=== PATIENT | female | born 1975 | race Caucasian/White ===

== ENCOUNTER 2020-06-17 18:28 | Emergency (ER) | payer SELFPAY ==
[~2020-06-17] VITALS: Ht 165.1 cm; Wt 81.6 kg
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
--- NOTE | 2020-06-17 18:46 | NUR ---
Patient brought in with ambulance for intoxication. Apparently tested for COVID and had a positive test result dated for today in her pocket. Belligerent and refusing to stay in her room. Decided to lay on the floor inthe middle of the ED. will medicate as per order
--- NOTE | 2020-06-17 18:53 | NUR ---
Medicated with Haldol 5mg IM.
[2020-06-17] MEDS: Haloperidol 5mg/ml Inj IM ONE (18:56)
--- NOTE | 2020-06-17 19:00 | NUR ---
ED Nurse Note: rcvd pt from primary nurse at shift change. pt was lying on the floor, spitting on things. Spoke with , ordered restraints. Pt decided to cooperate and stay in room but refused to put on monitoring devices. MD ordered labs, will wait until pt is calmer. Will continue to monitor.
[2020-06-17 20:27] LABS: BASOPHILS % (AUTO) 0.6 % (0.0-2.0); EOSINOPHILS % (AUTO) 3.6 % (0.0-3.0); HEMOGLOBIN 13.9 G/DL (12.0-16.0); LYMPHOCYTES % (AUTO) 42.8 % (20.0-45.0); MEAN CORPUSCULAR VOLUME 91 FL (80-99); MONOCYTES % (AUTO) 6.2 % (1.0-10.0); NEUTROPHILS % (AUTO) 46.8 % (45.0-75.0); PLATELET COUNT 226 K/UL (150-450); RED BLOOD COUNT 4.73 M/UL (4.20-5.40); RED CELL DISTRIBUTION WIDTH 14.2 % (11.6-14.8); WHITE BLOOD COUNT 9.6 K/UL (4.8-10.8)
[2020-06-17] MEDS: cefTRIAXone 1 GM in NS 55 ML IVPB ONE (20:28)
[2020-06-17] MEDS: Bacitracin Oint UD TOPIC ONE (20:29)
[2020-06-17 20:40] LABS: INR 0.9 (0.9-1.1)
[2020-06-17 20:48] LABS: ANION GAP 12 mmol/L (5-15); BLOOD UREA NITROGEN 10 mg/dL (7-18); CALCIUM 8.4 MG/DL (8.5-10.1); CARBON DIOXIDE 26 MMOL/L (21-32); CHLORIDE 109 MMOL/L (98-107); CREATININE 0.8 MG/DL (0.55-1.30); POTASSIUM 3.5 MMOL/L (3.5-5.1); SODIUM 146 MMOL/L (136-145)
--- NOTE | 2020-06-17 20:50 | NUR ---
ED Nurse Note: Pt refused medication administration via IV. Pt let me put ointment on her foot and continued to refuse IV antibiotics. Pt pulled out IV, so I cleaned pt up. Pt is resting comfortably on stretcher and states "I just want to sleep." Pt continued to refuse monitoring devices. WIll continue to monitor.
[2020-06-17 20:54] LABS: ALANINE AMINOTRANSFERASE 32 U/L (12-78); ALBUMIN 3.4 G/DL (3.4-5.0); ALBUMIN/GLOBULIN RATIO 0.8 (1.0-2.7); ALKALINE PHOSPHATASE 89 U/L (46-116); ASPARTATE AMINO TRANSFERASE 34 U/L (15-37); BILIRUBIN,TOTAL 0.3 MG/DL (0.2-1.0)
--- NOTE | 2020-06-17 22:03 | NUR ---
ED Nurse Note: pt sleeping/resting comfortably on stretcher. breathing without complications on RA. unable to obtain VS due to pts refusal of monitoring devices. will continue to monitor
--- NOTE | 2020-06-17 23:05 | NUR ---
ED Nurse Note: pt sleeping comfortably on stretcher. easily awakened by name. pt continues to refuse monitoring devices, so unable to obtain vs. Pt is breathing without complications on RA. Will continue to monitor.
--- NOTE | 2020-06-18 00:03 | NUR ---
ED Nurse Note: pt sleeping comfortably on stretcher and easily awakened by name. pt refusing monitoring devices so unable to obtain vs. pt breathing without complications on RA. will continue to monitor.
--- NOTE | 2020-06-18 01:06 | NUR ---
ED Nurse Note: Awoke pt to see how she was doing. Gave pt a bedpan to use the restroom. Pt then got back in bed and laid down. Pt continues to refuse monitoring devices. Pt is A&oX3. Denies any pain. Breathing without difficulties on RA and continues to want to rest. WIll continue to monitor pt.
[2020-06-18 01:44] VITALS: BP 148/62
--- NOTE | 2020-06-18 01:46 | NUR ---
ED Nurse Note: Pt sleeping on stretcher, easily awakened by name. Explained to the pt that we needed to get her vs another time or we would need to take other measures. Pt finally agreed to vs after another RN came in to assist. VS were obtained and recorded. VS WNL. Pt breathing without complications on RA. Pt is covid positive and isolation precautions remain in practice. will continue to monitor patient.
--- NOTE | 2020-06-18 03:08 | NUR ---
ED Nurse Note: Pt sleeping comfortably on stretcher, awaking easily to her name. Pt states that she is not in any pain at the moment. A&Ox3. VS were refused at this time. Breathing without complications on RA. Encouraged pt to drink water and gave her a sandwich. Will continue to monior.
--- NOTE | 2020-06-18 03:59 | NUR ---
ED Nurse Note: Pt resting comfortably on stretcher. A&Ox3. Pt breathing without difficulty on RA. Pt Asked for another sandwich and I asked for VS. VS WNL. Pt denies any pain at the time being. Will ask MD for discharge. Will continue to monitor in the meantime.
[2020-06-18 04:01] VITALS: BP 141/64
--- NOTE | 2020-06-18 05:00 | NUR ---
ED Nurse Note: Pt resting comfortably on stretcher. No complaints of pain at this time. Pt refused VS. Pt breathing without complications on RA. No signs of distress. Will continue to monitor.
[2020-06-18] MEDS ORDERED: CLINDAMYCIN HC300 MG ORAL (05:45)
--- NOTE | 2020-06-18 06:02 | NUR ---
ER DISCHARGE NOTE: Patient is cleared to be discharged per ER MD, pt is aox4, on room air, pt continues to refuse vitals. pt was given dc and prescription instructions, pt was able to verbalize understanding, pt iv site removed without complications. pt is able to ambulate with walker. pt refusing to leave, security was called.
--- NOTE | 2020-06-18 06:09 | NUR ---
ER DISCHARGE NOTE: Security spoke to pt and she continued to refuse to leave. Pt offered resource list of shelters. Pt states she refuses to leave despite it. Pt in room. Will continue to monitor.
--- NOTE | 2020-06-18 07:10 | NUR ---
Nurses note: PT walking aroun the ED, pt was told that she have to stay in her room due to her COVID-19 and for safety of other pt, pt turn verbaly agresive. Refuse V/S.
--- NOTE | 2020-06-18 07:40 | NUR ---
nurses note: pt walk out the ED with all her belongings.
--- NOTE | 2020-06-18 07:44 | NUR ---
MOBILE [employer] APPLICATION DEVELOPER NOTE SW met w/ pt and discussed dc planning. PT presents as A&O 4x. Pt has been homeless for 5 days after leaving her place. Per pt, the landlord sold the house and she had to move out. She received the notice in advance but failed to secure the housing. Pt has been unemployed for a few months, and she is not receiving any income. Pt has a walker and a few bags with her. Per chart review, pt had the covid test result in her pocket. SW asked pt if she could show the proof/paperwork. Pt denied, stated that she was never tested positive. Pt stated "I have been tested multiple times and I was never positive. You are the second person who is telling me that I am tested positive but I am not" SW asked pt when she was tested last time, pt declined to share w/ this SW. SW offered if pt wants to get tested for covid. Pt was adamant, refused, and stated "If I had covid, I would have ". CYRUS encouraged pt to reconsider but pt refused. PT is denying that she is covid positive. Pt denies hx of mental illness. PT denies having fever, sore throat, SOB. Pt requested the correction information. Pt reported that she received the correction information earlier but she does not know how to get to the shelters. ETOH level was 385 prior to ER visit. PT admits she drank a lot last night. PT declined counseling/tx intervention on substance abuse. Pt declined substance abuse rehab resource. CYRUS encouraged pt to apply GR, food stamp and unemployment benefit once she is secured w/ mailing address. CYRUS attempted to call winter shelters: [facility], [facility], [facility], [facility]. All calls were not answered. Per website, winter shelters open till August 11, 2020. CYRUS provided the addtional list of emergency and winter shelters. CYRUS provided the bus routes to the closest shelters from [facility] as per request. CYRUS explained negative ramification of unlicensed facilities and self-directing. Pt verbalized understanding. This CYRUS is unable to refer pt to covid quarantine center d/t not having the proof that pt is covid positive and pt declined to be tested for covid. PT will dc own resource to preferred location.
--- NOTE | 2020-06-18 08:12 | NUR ---
POST DC NOTE CYRUS spoke isabel Mcdonald from [facility] [phone], reported the incident. Ticket #[id number]. Addendum: 06/18/20 at 1121 by EUGENE BRIDGES CYRUS received a call from [facility] nurse Bradshaw and was informed to report AMA case to [facility] [phone]. CYRUS spoke isabel Anderson from [phone], informed this CYRUS that he is unsure if he takes AMA case report. This CYRUS filed the report through [email or web address] Addendum: 06/18/20 at 1141 by EUGENE BRIDGES CYRUS spoke w/ Dr. Davis from [facility], stating that she does not see this pt as covid positive in her computer system. Scarlett Pineda 1975 per ambulance report
== END 2020-06-18 07:40 | disposition home or self-care (01) ==
LOC: EDBD 18:28 → EMR 19:17
DX: F10.929 Alcohol use, unspecified with intoxication, unspecified (principal); L03.116 Cellulitis of left lower limb; U07.1 COVID-19; F17.200 Nicotine dependence, unspecified, uncomplicated; Y90.8 Blood alcohol level of 240 mg/100 ml or more
CPT/HCPCS: 36415; 80053; 85025; 85610; 85730; 87040; 96365; 96372; 99284; G0480; J0696; J1630

== ENCOUNTER → 2020-06-17 | Emergency (ER) | payer SELFPAY ==
[~2020-06-17] VITALS: Ht 165.1 cm; Wt 81.6 kg
[~2020-06-17] MED LIST: CLINDAMYCIN HC300 MG ORAL
[2020-06-17 14:25] VITALS: BP 142/70
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
--- NOTE | 2020-06-17 14:48 | Emergency Room Report ---
History of Present Illness General Chief Complaint: Lower Extremity Injury Source: Patient, EMS Present Illness HPI Patient brought in by BLS. She is complaining about right foot pain. They were called 4 times the patient had refused transport. PD was summoned because the patient was combative and spitting on BLS. The patient refuses to give me more history about the foot however there are sutures that are present there. Allergies: Coded Allergies: No Known Allergies (Unverified , 06/17/20) COVID-19 Screening Contact w/high risk pt: No Experienced COVID-19 symptoms?: No COVID-19 Testing performed BRONZER: No Patient History Limited by: other - Patient refuses to answer Past Medical History: see triage record Social History: Reports: alcohol use Social History Narrative According to registration the patient is homeless Last Menstrual Period: unknown Reviewed Nursing Documentation: PMH: Agreed; PSxH: Agreed Nursing Documentation-PM Past Medical History: No Stated History Review of Systems All Other Systems: limited Physical Exam Vital Signs Date Time Temp Pulse Resp B/P (MAP) Pulse Ox O2 Delivery O2 Flow Rate FiO2 06/17/20 14:25 84 142/70 (94) Pulse oximetry was not recorded. Patient refused. Sp02 EP Interpretation: other - Patient refused General Appearance: no apparent distress, GCS 15, non-toxic, other - Patient agitated and refusing evaluation Head: normocephalic, atraumatic Eyes: bilateral eye PERRL, bilateral eye EOMI, bilateral eye Scleral Injection ENT: moist mucus membranes Neck: full range of motion Respiratory: normal inspection Cardiovascular #1: normal inspection Gastrointestinal: normal inspection Musculoskeletal: swelling - Right foot dorsum, back normal, moves extm spontaneously Neurologic: oriented x3, speech normal, grossly normal Psychiatric: other - Angry and refusing care and examination Skin: warm/dry, other - Erythema dorsum of right foot with sutures present Medical Decision Making Diagnostic Impression: Primary Impression: Cellulitis of foot Additional Impression: Refusal of care by patient ER Course Patient presents via BLS. Patient is refusing evaluation and treatment. I offered the patient antibiotics because the patient has obvious cellulitis of the left foot. She refuses antibiotics or any further evaluation or treatment. Patient is competent to make a decision. She was told there is a risk of from infection in her foot. She refuses to be seen at this hospital. Status: unchanged Disposition: AGAINST MEDICAL ADVICE Condition: Unknown Facundo Gaspar MD Jun 17, 2020 14:48
== END | disposition home or self-care (01) ==
LOC: EDBD 13:59 → EMR 14:40
DX: L03.115 Cellulitis of right lower limb (principal); Z53.29 Procedure and treatment not carried out because of patient's decision for other reasons; Z72.89 Other problems related to lifestyle; Z59.0 Homelessness
CPT/HCPCS: 99282